=== PATIENT | male | born 1995 | race Caucasian/White ===

== ENCOUNTER 2024-04-24 04:53 | Day surgery (SDC) | payer OTHER ==
[2024-04-20 16:42] VITALS: BMI 21.5
[2024-04-24 06:17] VITALS: RESP 16
[2024-04-24] MEDS ORDERED: LIDOCAINE HCL 1%, 10 MG/ML (20ML VIAL) ONE (07:17)
[2024-04-24] MEDS ORDERED: BUPIVACAINE HCL/PF 0.5% (5MG/ML) 10 ML VIAL ONE (07:17)
[2024-04-24] MEDS ORDERED: KETOROLAC TROMETHAMINE 30 MG/1 ML VIAL ONE (07:48)
[2024-04-24] MEDS ORDERED: PROPOFOL 20 ML ONE (07:48)
[2024-04-24] MEDS ORDERED: MIDAZOLAM HCL 2 MG/2 ML SINGLE DOSE VIAL ONE (07:48)
[2024-04-24] MEDS ORDERED: ceFAZolin SODIUM 1 GM VIAL ONE ×2 (08:04→08:05)
[2024-04-24] MEDS: ceFAZolin SODIUM 1 GM VIAL IVPB ONE ×2 (08:05)
[2024-04-24] MEDS: BUPIVACAINE HCL/PF 0.5% (5 MG/ML) 30 ML VIAL IJ ONE (08:14)
[2024-04-24] MEDS: LIDOCAINE HCL 1%, 10 MG/ML (20ML VIAL) NR ONE (08:14)
[2024-04-24] MEDS ORDERED: oxyCODONE HCL 5 MG TABLET PO PRN (08:55)
[2024-04-24] MEDS ORDERED: ONDANSETRON 4 MG/2 ML VIAL IVPUSH PRN (08:55)
[2024-04-24] MEDS ORDERED: ACETAMINOPHEN 1000 MG/100 ML BAG IVPB PRN (08:55)
[2024-04-24 08:59] VITALS: BP 98/65; PULSE 73; TEMP 98
[2024-04-24] MEDS ORDERED: LACTATED RINGERS SOLUTION 1,000 ML IV SCH (09:00)
== END 2024-04-24 11:34 | disposition home or self-care (01) ==
LOC: JASU-SURG 04:53
PROVIDERS: ATTEND Orthopaedic Surgery
PROC: 0LB50ZZ Excision of Right Lower Arm and Wrist Tendon, Open Approach (ICD-10-PCS; principal; 2024-04-24 08:00)
DX: M67.431 Ganglion, right wrist (principal)
CPT/HCPCS: 88304-TC